=== PATIENT | female | born 1965 | race Native Hawaiian/Other Pacific Islander ===

== ENCOUNTER 2017-11-08 23:35 | Inpatient (IN) | payer OTHER ==
[~2017-11-08] VITALS: Ht 185.4 cm; Wt 116.1 kg
[~2017-11-08 23:35] MED LIST: BENADRYL25 MG PO; CLARITIN10 MG PO; FLONASE 0.05%50 MCG NS; IBUPROFEN 800800 M1 PO; KEFLEX500 MG PO; NOHOMEMEDICATIONS; NORCO 5-325 TA1 EACH PO; PERMETHRIN60 GM TOP; PROVERA10 MG PO; TESSALON200 MG PO; ZPAK PO
[2017-11-08 23:48] VITALS: BP 150/82
[2017-11-09 00:27] LABS: URINE BILIRUBIN NEGATIVE (Negative); URINE BLOOD TRACE (Negative); URINE CLARITY CLEAR; URINE COLOR YELLOW; URINE GLUCOSE-RANDOM NEGATIVE (Negative); URINE KETONES NEGATIVE (Negative); URINE LEUKOCYTES-REFLEX 1+ (Negative); URINE NITRITE-REFLEX NEGATIVE (Negative); URINE PROTEIN NEGATIVE (Negative); URINE UROBILINOGEN 0.2 E.U./dl (0.2-1.0)
[2017-11-09 00:39] LABS: ABSOLUTE BASOPHILS 0.1 thou/uL (0.0-0.2); ABSOLUTE EOSINOPHILS 0.2 thou/uL (0.0-0.7); ABSOLUTE LYMPHOCYTES 2.3 thou/uL (0.8-5.3); ABSOLUTE MONOCYTES 0.8 thou/uL (0.0-1.2); BASOPHILS 0.7 %; EOSINOPHILS 2.4 %; HEMATOCRIT 44.6 % (37.0-47.0); HEMOGLOBIN 15.3 gm/dL (12.0-15.0); LYMPHOCYTES 21.9 %; MCH 30.5 pg (26.0-34.0); MCHC 34.3 g/dL (28.0-37.0); MCV 89.1 fL (80.0-100.0); MONOCYTES 7.8 %; MPV 8.2 fl. (7.2-11.1); NUCLEATED RBCS 0 /100WBC; PLATELET COUNT* 236 thou/uL (150-400); POLYS 67.2 %; RBC 5.01 mil/uL (4.20-5.00); RDW-CV 12.8 % (10.5-14.5); WBC 10.4 thou/uL (4.0-11.0)
[2017-11-09 00:44] LABS: POTASSIUM 3.9 mmol/L (3.5-5.1)
[2017-11-09 00:48] LABS: ALBUMIN 3.9 g/dL (3.4-5.0); TOTAL BILIRUBIN 0.3 mg/dL (<0.1-1.0); TOTAL PROTEIN 8.1 g/dL (6.4-8.2)
[2017-11-09 01:20] LABS: CASTS None Seen /LPF (None Seen); CRYSTALS None Seen /LPF (None Seen); SQUAMOUS 4-10 Moderate /LPF (0-3); URINE RBC 0-2 Rare /HPF (0-2); URINE WBC-REFLEX 6-15 Few /HPF (0-5)
[2017-11-09 05:15] VITALS: BP 126/79
[2017-11-09 08:02] LABS: HEMATOCRIT 46.6 % (37.0-47.0); HEMOGLOBIN 15.9 gm/dL (12.0-15.0); MCH 30.1 pg (26.0-34.0); MCV 88.4 fL (80.0-100.0); MPV 8.4 fl. (7.2-11.1); RBC 5.27 mil/uL (4.20-5.00); RDW-CV 12.5 % (10.5-14.5)
[2017-11-09 08:07] LABS: CALCIUM 8.7 mg/dL (8.5-10.1); CREATININE 0.9 mg/dL (0.6-1.3); POTASSIUM 3.9 mmol/L (3.5-5.1)
[2017-11-09 08:27] VITALS: BP 131/80
[2017-11-09] MEDS ORDERED: MIRALAX17 GM PO (09:23)
[2017-11-09] MEDS ORDERED: BACTRIM DS TAB1 EACH PO (09:23)
[2017-11-09 16:17] VITALS: BP 126/73
[2017-11-09 20:00] VITALS: BP 116/74
[2017-11-10 07:32] LABS: HEMATOCRIT 45.2 % (37.0-47.0); HEMOGLOBIN 15.2 gm/dL (12.0-15.0); MCH 30.2 pg (26.0-34.0); MCHC 33.6 g/dL (28.0-37.0); MCV 89.8 fL (80.0-100.0); MPV 9.3 fl. (7.2-11.1); RBC 5.03 mil/uL (4.20-5.00); RDW-CV 12.7 % (10.5-14.5); WBC 10.4 thou/uL (4.0-11.0)
[2017-11-10 07:38] LABS: CALCIUM 8.4 mg/dL (8.5-10.1); CREATININE 0.9 mg/dL (0.6-1.3); MAGNESIUM 2.1 mg/dL (1.8-2.4); PHOSPHORUS* 3.6 mg/dL (2.5-4.9); POTASSIUM 3.9 mmol/L (3.5-5.1)
[2017-11-10 08:04] VITALS: BP 120/61
[2017-11-10 16:22] VITALS: BP 123/65
[2017-11-10 20:30] VITALS: BP 123/71
[2017-11-11 04:00] VITALS: BP 122/54
[2017-11-11 07:45] VITALS: BP 122/58
[2017-11-11 16:05] VITALS: BP 137/74
[2017-11-12] VITALS: BP 124/58
[2017-11-12 08:45] VITALS: BP 123/67
[2017-11-12 12:45] VITALS: BP 123/67
[2017-11-12] MEDS ORDERED: APAP650 PO (12:58)
[2017-11-12] MEDS ORDERED: TYLENOL325 MG PO (12:59)
[2017-11-12] MEDS ORDERED: IBUPROFEN 600600 M1 PO (13:01)
[2017-11-12 13:18] VITALS: BP 123/67
== END 2017-11-12 13:20 | disposition home or self-care (01) | DRG 389 ==
LOC: M.ERS 23:35 → M.TBA-ER 11-09 03:32 → M.ORTHSURG 11-09 03:32
PROVIDERS: Internal Medicine; Personal Emergency Response Attendant; Surgery; ADMIT Internal Medicine
DX: K56.600 Partial intestinal obstruction, unspecified as to cause (principal); N39.0 Urinary tract infection, site not specified; K59.00 Constipation, unspecified; K76.0 Fatty (change of) liver, not elsewhere classified; E66.9 Obesity, unspecified; Z90.710 Acquired absence of both cervix and uterus; Z79.899 Other long term (current) drug therapy; Z68.33 Body mass index [BMI] 33.0-33.9, adult; Z80.1 Family history of malignant neoplasm of trachea, bronchus and lung

== ENCOUNTER 2018-04-05 23:14 | Emergency (ER) | payer BC ==
[~2018-04-05] VITALS: Ht 185.4 cm; Wt 127.0 kg
[~2018-04-05 23:14] MED LIST changes: +APAP650 PO; +BACTRIM DS TAB1 EACH PO; +IBUPROFEN 600600 M1 PO; +MIRALAX17 GM PO; +TYLENOL325 MG PO
[2018-04-05] MEDS ORDERED: MOBIC7.5 MG PO (23:51)
[2018-04-05] MEDS ORDERED: ACETAMINOPHEN-1 EAC1 PO (23:51)
[2018-04-06 00:02] VITALS: BP 142/80
== END 2018-04-06 00:02 | disposition home or self-care (01) ==
LOC: M.ERS 23:14
DX: M65.4 Radial styloid tenosynovitis [de Quervain] (principal); Z90.710 Acquired absence of both cervix and uterus

== ENCOUNTER 2018-06-21 16:37 | Emergency (ER) | payer BC ==
[~2018-06-21] VITALS: Ht 185.4 cm; Wt 127.0 kg
[~2018-06-21 16:37] MED LIST changes: +ACETAMINOPHEN-1 EAC1 PO; +MOBIC7.5 MG PO
[2018-06-21] MEDS ORDERED: CLARITIN10 MG PO (16:43)
[2018-06-21] MEDS ORDERED: FLONASE 0.05%50 MCG NASAL (16:57)
[2018-06-21 17:40] VITALS: BP 141/86
== END 2018-06-21 17:54 | disposition home or self-care (01) ==
LOC: M.ERS 16:37
DX: J30.2 Other seasonal allergic rhinitis (principal); R05 Cough; Z90.710 Acquired absence of both cervix and uterus; Z98.890 Other specified postprocedural states

== ENCOUNTER 2019-10-20 18:04 | Emergency (ER) | payer BC ==
[~2019-10-20] VITALS: Ht 185.4 cm; Wt 129.3 kg
[~2019-10-20 18:04] MED LIST changes: +FLONASE 0.05%50 MCG NASAL
[2019-10-20] MEDS ORDERED: NORCO 5-325 TA1 EAC1 PO (20:12)
[2019-10-20] MEDS ORDERED: AUGMENTIN 500-1 EACH PO (20:12)
[2019-10-20 20:21] VITALS: BP 140/81
== END 2019-10-20 20:21 | disposition home or self-care (01) ==
LOC: M.ERS 18:04
DX: S02.5XXA Fracture of tooth (traumatic), initial encounter for closed fracture (principal); J32.9 Chronic sinusitis, unspecified; Z98.890 Other specified postprocedural states; Z90.710 Acquired absence of both cervix and uterus; W01.0XXA Fall on same level from slipping, tripping and stumbling without subsequent striking against object, initial encounter; Y93.89 Activity, other specified; Y92.89 Other specified places as the place of occurrence of the external cause; Y99.8 Other external cause status

== ENCOUNTER 2020-04-09 12:23 | Emergency (ER) | payer OTHER ==
[~2020-04-09] VITALS: Ht 185.4 cm; Wt 129.3 kg
[~2020-04-09 12:23] MED LIST changes: +AUGMENTIN 500-1 EACH PO; +NORCO 5-325 TA1 EAC1 PO
[2020-04-09] MEDS ORDERED: LORAZEPAM 1 MG T1 MG PO (12:34)
[2020-04-09] MEDS ORDERED: APPETITE SUPPRESSANT (12:34)
[2020-04-09 13:40] LABS: ABSOLUTE BASOPHILS 0.1 thou/uL (0.0-0.2); ABSOLUTE EOSINOPHILS 0.2 thou/uL (0.0-0.7); ABSOLUTE LYMPHOCYTES 1.8 thou/uL (0.8-5.3); ABSOLUTE MONOCYTES 0.6 thou/uL (0.0-1.2); BASOPHILS 1.3 %; EOSINOPHILS 2.7 %; HEMATOCRIT 43.6 % (37.0-47.0); HEMOGLOBIN 15.1 gm/dL (12.0-15.0); LYMPHOCYTES 23.6 %; MCH 30.8 pg (26.0-34.0); MCHC 34.6 g/dL (28.0-37.0); MCV 88.9 fL (80.0-100.0); MONOCYTES 7.4 %; MPV 8.3 fl. (7.2-11.1); NUCLEATED RBCS 0 /100WBC; PLATELET COUNT* 233 thou/uL (150-400); WBC 7.7 thou/uL (4.0-11.0)
--- NOTE | 2020-04-09 13:44 | EKG ---
[place] [address] ELECTROCARDIOGRAM REPORT Name: ENOC SINGER Room: [facility].#: [id number] Admission: 04/09/20 Attend Phys: Discharge: Date of : 67 Date of Service: 04/09/20 1321 Report #: [id number] THIS REPORT FOR: //name// [facility] ED Test Date: 2020-04-09 Test Time: 13:21:42 Pat Name: ENOC SINGER Department: Room: Gender: F [employer]: ERIN : 1965 Requested By: Kj Diaz Order Number: [id number] MD: Pedro Hathaway Measurements Intervals [place] Rate: 69 P: 8 [place]: 177 QRS: -12 QRSD: 83 T: 5 QT: 404 QTc: 433 Interpretive Statements Sinus rhythm Inferior infarct, old Compared to ECG 02/20/2015 23:49:57 no change Electronically Signed On 04-09-2020 13:44:19 CDT by Pedro Hathaway [email or web address] <ELECTRONICALLY SIGNED> By: Pedro Hathaway MD, [facility] 04/09/20 1344 1321 1321 Pedro Hathaway MD, [facility] /EPI
[2020-04-09 13:49] LABS: CALCIUM 8.4 mg/dL (8.5-10.1); CREATININE 0.8 mg/dL (0.6-1.3); POTASSIUM 3.8 mmol/L (3.5-5.1)
[2020-04-09 13:54] LABS: ALBUMIN 3.7 g/dL (3.4-5.0); TOTAL BILIRUBIN 0.4 mg/dL (<0.1-1.0); TOTAL PROTEIN 7.6 g/dL (6.4-8.2)
[2020-04-09] MEDS ORDERED: MECLIZINE HCL25 M1 PO (14:24)
[2020-04-09 15:26] VITALS: BP 151/94
== END 2020-04-09 15:27 | disposition home or self-care (01) ==
LOC: M.ERS 12:23
PROVIDERS: Emergency Medicine Emergency Medical Services
DX: R42 Dizziness and giddiness (principal); Z98.890 Other specified postprocedural states; Z90.710 Acquired absence of both cervix and uterus